=== PATIENT | male | born 1990 | race Caucasian/White ===

== ENCOUNTER 2022-12-05 18:16 | Emergency (ER) | payer BC, SELFPAY ==
[2022-12-05 18:31] VITALS: BP 127/70; PULSE 72; RESP 16; TEMP 36.7; O2SAT 98; BMI 30.5
--- NOTE | 2022-12-05 22:16 | ED.SKABFB1 ---
HPI - Skin/Abscess/Foreign Bdy General Chief complaint: Skin/Abscess/Foreign Body Stated complaint: RASH Time Seen by Provider: 12/05/22 18:37 Source: patient Mode of arrival: walk-in History of Present Illness HPI narrative: Patient presents to emergency department with a complaint of a rash. Patient states he started having a rash since Sunday where they were out weeding. States the rash has been spreading. They saw an urgent care and was started on some steroids tapering from 40 mg down today since and they have not had any improvement. He is very itchy. He has been taking Benadryl. He denies any sore throat fever, headache, chest pain, shortness of breath. He denies any throat or perioral swelling. The patient states when he went to the urgent care they wanted to give him an injection but they didn't have any so they just given the prescriptions for the pills. They're wondering if there is something else to do for them. Patient's sister is positive for strep. He wants to make sure there is nothing else going on. Related Data Previous Rx's Medication Instructions Recorded amoxicillin 500 mg capsule 500 mg PO TID 10 days #30 caps 12/05/22 famotidine 20 mg tablet (Pepcid) 20 mg PO DAILY #14 tabs 12/05/22 hydroxyzine HCl 50 mg tablet 50 mg PO Q8H PRN itching #20 tabs 12/05/22 prednisone 10 mg tablets in a dose 10 mg PO DAILY #48 ea 12/05/22 pack Allergies Allergy/AdvReac Type Severity Reaction Status Date / Time No Known Drug Allergies Allergy Verified 12/05/22 18:31 Review of Systems ROS Status of ROS 10 or more systems reviewed and unremarkable except as noted in history and below Exam Narrative Exam Narrative: Nurses notes and vital signs reviewed and patient is not hypoxic. General: Nontoxic, Well-appearing and in no apparent distress. Skin: Warm, dry, no pallor noted. Diffuse macular papular rash and linear vesicles consistent with contact dermatitis to the arms, neck, and legs. No signs of bacterial Or viral infection Head: Normocephalic, atraumatic. Neck: Supple, non-tender. Eye: Pupils are equal, round and EOMI. No scleral icterus. Ears, Nose, Mouth, and Throat: TM clear, no posterior oropharynx erythema or nasal mucosal hypertrophy, uvula is mid-line Oral mucosa is moist Cardiovascular: Regular Rate and Rhythm without murmur, gallop or rub. Respiratory: No accessory muscle use or respiratory distress. Lungs are clear to auscultation, no wheezing, rales or rhonchi Chest Wall: no tenderness Back: No midline thoracic or lumbar vertebral tenderness. No CVA tenderness Musculoskeletal: normal ROM, no calf or popliteal tenderness, no lower extremity edema/swelling GI: Abdomen is soft, non-distended. Normal bowel sounds. No masses appreciated. No tenderness to palpation. No rebound, guarding, or rigidity noted. Neurological: A&O x4. No cranial nerve dysfunction observed. No truncal ataxia. Moves all extremities. Sensation intact. Psychiatric: Cooperative and interactive. Normal mood and affect. Constitutional Vital Signs, click to edit/add: Last Vital Signs Temp 98.1 F 12/05/22 18:31 Pulse 72 12/05/22 18:31 Resp 16 12/05/22 18:31 BP 127/70 12/05/22 18:31 Pulse Ox 98 12/05/22 18:31 O2 Del Method Room Air 12/05/22 22:27 Course Vital Signs Vital signs: Vital Signs Temperature 98.1 F 12/05/22 18:31 Pulse Rate 72 12/05/22 18:31 Respiratory Rate 16 12/05/22 18:31 Blood Pressure 127/70 12/05/22 18:31 Pulse Oximetry 98 12/05/22 18:31 Oxygen Delivery Method Room Air 12/05/22 18:31 Temperature 98.1 F 12/05/22 18:31 Pulse Rate 72 12/05/22 18:31 Respiratory Rate 16 12/05/22 18:31 Blood Pressure 127/70 12/05/22 18:31 Pulse Oximetry 98 12/05/22 18:31 Oxygen Delivery Method Room Air 12/05/22 22:27 MDM - Skin/Abscess/Foreign Bdy MDM Narrative Medical decision making narrative: Patient was given prednisone taper for 18 days.Given a prescription for Atarax, and Pepcid. Discussed with the patient that there is no difference between injected steroid and an oral steroid. Patient was concerned for strep exposure. He did not have a sore throat or fever. He will be given an amoxicillin prescription for a [id number] approach.He will not fill it unless he develops any sore throat or fever. At this time the patient is without objective evidence of an acute process requiring hospitalization or inpatient management. The patient has remained hemodynamically stable. No additional indication for emergent studies at this time. I answered all questions. Discussed discharge instructions including standard anticipatory guidance and what should prompt a return to the emergency department, including if they get worse are not getting better or develops any new or concerning symptoms. I've given them specific time frame in which to follow-up, and who to follow-up with. The patient demonstrates understanding. Patient is nontoxic and stable for discharge with outpatient follow-up. This note was created with the assistance of a speech recognition program. Although the intention is to generate documents that actually reflects the content of the visit, no guarantees can be provided that every mistake has been identified and corrected by editing. Discharge Plan Discharge Chief Complaint: Skin/Abscess/Foreign Body Clinical Impression: Contact dermatitis, Strep throat exposure Patient Disposition: Home, Self-Care Time of Disposition Decision: 22:30 Condition: Good Mode of Transportation: Private Vehicle Prescriptions / Home Meds: New prednisone 10 mg tablets,dose pack 10 mg PO DAILY Qty: 48 0RF Rx Instructions: [id number], [id number] hydroxyzine HCl 50 mg tablet 50 mg PO Q8H PRN (Reason: itching) Qty: 20 0RF famotidine [Pepcid] 20 mg tablet 20 mg PO DAILY Qty: 14 0RF amoxicillin 500 mg capsule 500 mg PO TID 10 Days Qty: 30 0RF Instructions: Contact Dermatitis (ED), Strep Throat (ED) Stand Alone Forms: Portal Instructions Referrals: Physician,Non-Staff, MD [Primary Care Provider] - 1 week Discharge Date/Time: 12/05/22 23:42
--- NOTE | 2022-12-05 22:26 | PC.NURSE ---
bilat arms have been treated with calamine lotion by pt prior to arrival. pt taking oral steroids prescribed by [facility] [place]. no change in status at this time
[2022-12-05] MEDS: PREDNISONE 20 MG TABLET 60 MG PO (23:15)
[2022-12-05] MEDS: FAMOTIDINE 20 MG TABLET PO (23:16)
[2022-12-05] MEDS: HYDROXYZINE HCL 25 MG TABLET 50 MG PO (23:16)
== END 2022-12-05 23:42 | disposition home or self-care (01) ==
PROVIDERS: Emergency Provider Emergency Medicine
DX: L25.9 Unspecified contact dermatitis, unspecified cause (principal); Z20.818 Contact with and (suspected) exposure to other bacterial communicable diseases
CPT/HCPCS: 99283